=== PATIENT | male | born 1975 | race Caucasian/White ===

== ENCOUNTER 2024-02-19 09:50 | Emergency (ER) | payer OTHER ==
[~2024-02-19] VITALS: Ht 195.5 cm; Wt 136.1 kg
[~2024-02-19 09:50] MED LIST: NKHM; NORCO 325 MG-51 TAB PO
[2024-02-19] MEDS ORDERED: Lactated Ringer's Solution 1,000 ML IV SCH (10:15)
[2024-02-19] MEDS ORDERED: MORPHINE Sulfate 2 MG/ML SYR IV ONE (10:15)
[2024-02-19] MEDS ORDERED: Ondansetron Hydrochloride 4 MG/2 ML VIAL IV ONE (10:15)
[2024-02-19] MEDS ORDERED: Ketorolac Tromethamine 15 MG/ML VIAL IV ONE (10:15)
[2024-02-19 10:30] LABS: BASO % 0.4 % (0.0-1.0); EOS # 0.3 10*3/uL (0.0-0.4); EOS % 3.1 % (1.0-4.0); HEMATOCRIT 46.1 % (42.0-52.0); LYMPH # 1.7 10*3/uL (1.3-4.4); LYMPH % 18.7 % (27.0-41.0); MEAN CELL VOLUME 90.7 fl (80.0-94.0); MEAN CORPUSCULAR HGB 30.7 pg (27.0-31.0); MEAN CORPUSCULAR HGB CONC 33.8 g/dl (33.0-37.0); MEAN PLATELET VOLUME 8.9 fl (9.6-12.3); MONO # 0.6 10*3/uL (0.1-1.0); MONO % 6.6 % (3.0-9.0); NEUT # 6.4 10*3/uL (2.3-7.9); NEUT % 70.9 % (47.0-73.0); PLATELET COUNT AUTOMATED 285 10*3/uL (130-400); RED BLOOD COUNT 5.08 10*6/uL (4.50-5.90); RED CELL DISTRI WIDTH 12.2 % (0-14.5)
[2024-02-19 10:33] LABS: BILIRUBIN Negative (Negative); BLOOD Trace-Intact (Negative); CLARITY Clear (Clear); COLOR Yellow (Yellow); GLUCOSE Negative (Negative); KETONE Trace (Negative); LEUKO ESTERASE Trace (Negative); NITRITE Negative (Negative); PH 6.5 (4.5-8.0); SPECIFIC GRAVITY >= 1.030 (1.001-1.030)
[2024-02-19 10:41] LABS: BACTERIA TRACE; EPITHELIAL CELLS 0-2; MUCOUS 1+; WBC 0-2 wbc/hpf (0-5)
[2024-02-19 10:56] LABS: ALKALINE PHOSPHATASE 57 U/L (46-116); BUN 12 mg/dl (9-23); CHLORIDE 107 mmol/L (98-107); LIPASE 30 U/L (12-53); SGPT/ALT 27 U/L (5-49); TOTAL PROTEIN 7.4 gm/dL (6.0-8.0)
[2024-02-19] MEDS ORDERED: Ondansetron4 MG PO (11:40)
[2024-02-19] MEDS ORDERED: TYLENOL EXTRA500 MG PO (11:40)
[2024-02-19] MEDS ORDERED: FLOMAX0.4 MG PO (11:40)
[2024-02-19] MEDS ORDERED: Motrin,Rufen400 MG PO (11:40)
== END 2024-02-19 12:06 | disposition home or self-care (01) ==
LOC: ED 09:50
PROVIDERS: Emergency Medicine
DX: N13.2 Hydronephrosis with renal and ureteral calculous obstruction (principal); R11.2 Nausea with vomiting, unspecified; Z98.890 Other specified postprocedural states